=== PATIENT | male | born 1970 ===

== ENCOUNTER 2017-05-03 21:22 | Emergency (ER) | payer SELFPAY ==
[2017-05-03 21:22] VITALS: BMI 25.8
[2017-05-03 21:35] VITALS: BP 123/74; PULSE 64; RESP 18; TEMP 98.7; O2SAT 99
--- NOTE | 2017-05-03 21:59 | ED PDOC ---
HPI: CCC, URI, Sore Throat Time Seen by Provider: 05/03/17 21:43 Chief Complaint (Nursing): Chest Pain Chief Complaint (Provider): Cough, 4 days with tactile fever History Per: Patient History/Exam Limitations: no limitations Have you had recent travel within the past 21 days to any of the following countries: [place], [place], [place] or [place]?: No Onset/Duration Of Symptoms: Days Current Symptoms Are (Timing): Still Present Location Of Pain: None Sick Contacts (Context): None Associated Symptoms: Fever, Chills, Sore Throat, Cough, Myalgias, Other (PT reports central chest pain only when coughing). denies: Sputum, Vomiting, Diarrhea Ear Symptoms: Bilateral: None Severity: Mild Past Medical History Reviewed: Historical Data, Nursing Documentation, Vital Signs Vital Signs: Last Vital Signs Temp 98.7 F 05/03/17 21:33 Pulse 64 05/03/17 21:33 Resp 18 05/03/17 21:33 BP 123/74 05/03/17 21:33 Pulse Ox 99 05/03/17 21:59 - Medical History PMH: No Chronic Diseases - Surgical History Surgical History: Appendectomy - Family History Family History: States: Unknown Family Hx - Living Arrangements Living Arrangements: With Family - Social History Current smoker - smoking cessation education provided: No Alcohol: None Drugs: Denies - Home Medications Home Medications: Ambulatory Orders Medication Instructions Recorded Ibuprofen [Motrin] 600 mg PO Q6 PRN #15 tab 11/15/16 Sulfamethoxazole/Trimethoprim 1 tab PO BID #14 tab 11/15/16 [Bactrim DS 800 mg-160 mg] Azithromycin [Zithromax] 250 mg PO DAILY #6 tab 05/03/17 Promethazine HCl/Codeine 10 ml PO Q8H PRN #150 ml 05/03/17 [Prometh-Codein 6.25-10 mg/5 ml] - Allergies Allergies/Adverse Reactions: Allergies Allergy/AdvReac Type Severity Reaction Status Date / Time No Known Allergies Allergy Verified 05/03/17 21:35 Review of Systems ROS Statement: Except As Marked, All Systems Reviewed And Found Negative Constitutional: Positive for: Fever, Chills, Sweats Cardiovascular: Positive for: Chest Pain (Only when coughing ) Respiratory: Positive for: Cough. Negative for: Shortness of Breath, Pleuritic Pain, Sputum Physical Exam - Reviewed Nursing Documentation Reviewed: Yes Vital Signs Reviewed: Yes - Physical Exam Appears: Positive for: Well, Non-toxic, No Acute Distress Head Exam: Positive for: ATRAUMATIC, NORMAL INSPECTION, NORMOCEPHALIC Skin: Positive for: Normal Color, Warm, DRY Eye Exam: Positive for: Normal appearance ENT: Positive for: Pharyngeal Erythema, Tonsillar Swelling. Negative for: Normal ENT Inspection, Tonsillar Exudate Neck: Positive for: Normal, Painless ROM Cardiovascular/Chest: Positive for: Regular Rate, Rhythm Respiratory: Positive for: CNT, Normal Breath Sounds Gastrointestinal/Abdominal: Positive for: Normal Exam, Bowel Sounds, Soft Back: Positive for: Normal Inspection Extremity: Positive for: Normal ROM Neurologic/Psych: Positive for: Alert, Oriented - ECG O2 Sat by Pulse Oximetry: 99 Disposition - Clinical Impression Clinical Impression: URI (upper respiratory infection) - Patient ED Disposition Is Patient to be Admitted: No Counseled Patient/Family Regarding: Diagnosis, Need For Followup, Rx Given - Disposition Referrals: [facility] [Outside] Disposition: Routine/Home Disposition Time: 21:54 Condition: GOOD Prescriptions: Azithromycin [Zithromax] 250 mg PO DAILY #6 tab Promethazine HCl/Codeine [Prometh-Codein 6.25-10 mg/5 ml] 10 ml PO Q8H PRN #150 ml PRN Reason: Cough Instructions: Upper Respiratory Infection (ED) Print Language: MONTENEGRIN
== END 2017-05-03 22:00 | disposition home or self-care (01) ==
LOC: H.ER 21:22
DX: J06.9 Acute upper respiratory infection, unspecified (principal); R05 Cough

== ENCOUNTER 2017-09-15 15:51 | Emergency (ER) | payer OTHER ==
[2017-09-15 15:52] VITALS: BMI 25.8
[2017-09-15 16:01] VITALS: BP 116/70; PULSE 65; RESP 16; TEMP 98.6; O2SAT 99
--- NOTE | 2017-09-15 16:44 | ED PDOC ---
HPI: Male Pain Time Seen by Provider: 09/15/17 16:30 Chief Complaint (Nursing): Male Genitourinary Chief Complaint (Provider): Dysuria History Per: Patient History/Exam Limitations: no limitations Onset/Duration Of Symptoms: Other (2 weeks) Current Symptoms Are (Timing): Still Present Additional Complaint(s): Patient is a 47 y/o male with no significant past medical history presenting to the emergency department for dysuria ongoing for two weeks with associated bloody ejaculation reported. Also notes having constipation for five days. Denies other complaints. PCP: Dr. Roseann Mccann Past Medical History Reviewed: Historical Data, Nursing Documentation, Vital Signs Vital Signs: Last Vital Signs Temp 98.6 F 09/15/17 15:58 Pulse 65 09/15/17 15:58 Resp 16 09/15/17 15:58 BP 116/70 09/15/17 15:58 Pulse Ox 99 09/15/17 15:58 - Medical History PMH: No Chronic Diseases - Surgical History Surgical History: Appendectomy - Family History Family History: States: Unknown Family Hx - Social History Current smoker - smoking cessation education provided: No Ex-Smoker (has not smoked in the last 12 months): No Alcohol: None Drugs: Denies - Home Medications Home Medications: Ambulatory Orders Medication Instructions Recorded Ibuprofen [Motrin] 600 mg PO Q6 PRN #15 tab 11/15/16 Sulfamethoxazole/Trimethoprim 1 tab PO BID #14 tab 11/15/16 [Bactrim DS 800 mg-160 mg] Azithromycin [Zithromax] 250 mg PO DAILY #6 tab 05/03/17 Promethazine HCl/Codeine 10 ml PO Q8H PRN #150 ml 05/03/17 [Prometh-Codein 6.25-10 mg/5 ml] Ciprofloxacin HCl [Cipro] 500 mg PO BID #28 tablet 09/15/17 Docusate Sodium [Colace] 100 mg PO BID #14 capsule 09/15/17 Phosphate Enema [Fleet Enema 135 135 ml RC ONCE PRN #1 nma 09/15/17 Ml] - Allergies Allergies/Adverse Reactions: Allergies Allergy/AdvReac Type Severity Reaction Status Date / Time No Known Allergies Allergy Verified 05/03/17 21:35 Review of Systems ROS Statement: Except As Marked, All Systems Reviewed And Found Negative Gastrointestinal: Positive for: Constipation Genitourinary Male: Positive for: Dysuria, Other (bloody ejaculation) Physical Exam - Reviewed Nursing Documentation Reviewed: Yes Vital Signs Reviewed: Yes - Physical Exam Appears: Positive for: Well, Non-toxic, No Acute Distress Head Exam: Positive for: ATRAUMATIC, NORMAL INSPECTION, NORMOCEPHALIC Skin: Positive for: Normal Color, Warm, Dry Eye Exam: Positive for: Normal appearance Neck: Positive for: Normal Cardiovascular/Chest: Positive for: Regular Rate, Rhythm Respiratory: Negative for: Accessory Muscle Use, Respiratory Distress Gastrointestinal/Abdominal: Positive for: Normal Exam, Soft. Negative for: Tenderness Male Genital Exam: Positive for: normal genitalia (nontender), other ( tenderness of perineal region on palpation) Back: Positive for: Normal Inspection. Negative for: L CVA Tenderness, R CVA Tenderness, Vertebral Tenderness Extremity: Positive for: Normal ROM Neurologic/Psych: Positive for: Alert, Oriented (x3) - Laboratory Results Result Diagrams: 09/15/17 17:27 09/15/17 17:27 - ECG O2 Sat by Pulse Oximetry: 99 (RA) Pulse Ox Interpretation: Normal - Progress ED Course And Treament: CT ABD/PELVIS IMPRESSION: 1. No acute abdominal or pelvic abnormality. 2. Specifically, no evidence of colonic diverticulosis. Constipation. No evidence of bowel obstruction. 3. Fatty liver. Medical Decision Making Medical Decision Making: Time: 16:26 Initial impression: UTI Initial plan: * ED Urine Dipstick * A/P CT scan with IV contrast * Chlamydia/gonorrhea * Urine Culture * Urinalysis ~ Scribe Attestation: Documented by Kerry Joiner, acting as a scribe for DARNELL Yadav. Provider Scribe Attestation: All medical record entries made by the Scribe were at my direction and personally dictated by me. I have reviewed the chart and agree that the record accurately reflects my personal performance of the history, physical exam, medical decision making, and the department course for this patient. I have also personally directed, reviewed, and agree with the discharge instructions and disposition. Disposition - Clinical Impression Clinical Impression: Constipation, Dysuria - Patient ED Disposition Is Patient to be Admitted: No - Disposition Referrals: Jo Briseno MD [Medical Doctor] - Disposition: Routine/Home Disposition Time: 19:46 Condition: FAIR Prescriptions: Ciprofloxacin HCl [Cipro] 500 mg PO BID #28 tablet Docusate Sodium [Colace] 100 mg PO BID #14 capsule Phosphate Enema [Fleet Enema 135 Ml] 135 ml RC ONCE PRN #1 nma PRN Reason: Constipation Instructions: Constipation (ED), High Fiber Diet (ED), Dysuria (ED) Forms: [facility] (Sudanese) Print Language: YI
[2017-09-15 17:26] LABS: URINE BILIRUBIN NEGATIVE (NEGATIVE); URINE BLOOD SMALL (NEGATIVE); URINE COLOR YELLOW (YELLOW); URINE GLUCOSE (UA) NEG (Normal); URINE KETONE NEGATIVE (NEGATIVE); URINE LEUKOCYTE ESTERASE NEG Leu/uL (Negative); URINE PROTEIN NEGATIVE (NEGATIVE); URINE UROBILINOGEN 0.2-1.0 mg/dL (0.2-1.0); WBC URINE < 1 /hpf (0-5)
[2017-09-15 17:31] LABS: BASO % 0.6 % (0.0-2.0); HEMATOCRIT 36.7 % (35.0-51.0); LYMPH # 1.3 K/uL (1.0-4.3); LYMPH % 29.9 % (20.0-40.0); MEAN CELL VOLUME 93.9 fl (80.0-94.0); MEAN CORPUSCULAR HEMOGLOBIN 31.6 pg (27.0-31.0); MEAN CORPUSCULAR HGB CONC 33.6 g/dL (33.0-37.0); MEAN PLATELET VOLUME 8.4 fl (7.2-11.7); MONO # 0.4 K/uL (0.0-0.8); MONO % 10.6 % (0.0-10.0); NEUT # 2.4 K/uL (1.8-7.0); NEUT % 57.9 % (50.0-75.0); NRBC % 0.1 % (0.0-0.0); RED CELL DISTRIBUTION WIDTH 12.8 % (11.5-14.5); WHITE BLOOD COUNT 4.2 K/uL (4.8-10.8)
[2017-09-15 17:31] LABS: RBC URINE 5 /hpf (0-3)
[2017-09-15 17:42] LABS: ALB/GLOB RATIO 1.4 (1.0-2.1); ALKALINE PHOSPHATASE 63 U/L (38-126); ALT/SGPT 27 U/L (21-72); AST/SGOT 34 U/L (17-59); BILIRUBIN,TOTAL 0.5 mg/dl (0.2-1.3); BLOOD UREA NITROGEN 17 mg/dl (9-20); CALCIUM 9.6 mg/dL (8.4-10.2); CARBON DIOXIDE 28 mmol/L (22-30); CHLORIDE 103 mmol/L (98-107); GFR AFRICAN-AMERICAN > 60; GLUCOSE,RANDOM 93 mg/dL (75-110); LIPASE 102 U/L (23-300); POTASSIUM 4.3 MMOL/L (3.6-5.0); SODIUM 142 mmol/l (132-148); TOTAL PROTEIN 8.2 G/DL (6.3-8.2)
[2017-09-15] MEDS ORDERED: Sodium Chloride 0.9% 50 ML IV ONE (17:47)
[2017-09-15] MEDS ORDERED: Iohexol 300 100 ML IJ ONE (17:47)
[2017-09-15] MEDS ORDERED: Sodium Chloride 0.9% 1,000 ML IV STA (17:57)
--- NOTE | 2017-09-15 18:35 | CT ---
PROCEDURE: CT Abdomen and Pelvis with contrast HISTORY: R/O DIVERTICULITIS COMPARISON: None. TECHNIQUE: CT scan of the abdomen and pelvis was performed after intravenous administration of contrast. Oral contrast was not administered. Coronal and sagittal reformatted images were obtained. Contrast dose: Radiation dose: Total exam DLP = 729.71 mGy-cm. This CT exam was performed using one or more of the following dose reduction techniques: Automated exposure control, adjustment of the mA and/or kV according to patient size, and/or use of iterative reconstruction technique. FINDINGS: LOWER THORAX: There is minimal subsegmental atelectasis in the lung bases. LIVER: The liver is normal in size and there is diffuse fatty infiltration. No gross lesion or ductal dilatation. GALLBLADDER AND BILE DUCTS: There are no calcified gallstones. PANCREAS: The pancreas is normal in size and there is homogeneous enhancement. No gross lesion or ductal dilatation. SPLEEN: The spleen is normal in size and there is homogeneous enhancement without focal lesion. ADRENALS: Both adrenal glands are normal in size without discrete nodule. KIDNEYS AND URETERS: Both kidneys are normal in size and there is homogeneous enhancement without hydronephrosis or mass. VASCULATURE: No aortic aneurysm. BOWEL: The small bowel loops are normal in caliber. There is large amount of stool in the colon. No bowel dilatation or obstruction APPENDIX: No inflammatory changes in the right lower quadrant. PERITONEUM: No free fluid. No free air. LYMPH NODES: No enlarged lymph nodes. BLADDER: Normal in appearance. REPRODUCTIVE: The prostate gland is normal in size. BONES: No acute fracture. Within normal limits for the patient's age. OTHER FINDINGS: None. IMPRESSION: 1. No acute abdominal or pelvic abnormality. 2. Specifically, no evidence of colonic diverticulosis. Constipation. No evidence of bowel obstruction. 3. Fatty liver.
== END 2017-09-15 20:00 | disposition home or self-care (01) ==
LOC: H.ER 15:51
DX: N39.0 Urinary tract infection, site not specified (principal); K59.00 Constipation, unspecified
CPT/HCPCS: 74177; 80053; 81003; 83690; 85025; 87086; 87491; 87591; 99282; Q9967

== ENCOUNTER 2018-01-02 13:04 | Emergency (ER) | payer SELFPAY ==
[2018-01-02 13:05] VITALS: BMI 25.8
[2018-01-02 13:22] VITALS: PULSE 68; RESP 18; TEMP 98
--- NOTE | 2018-01-02 14:17 | ED PDOC ---
HPI: General Adult Time Seen by Provider: 01/02/18 13:54 Chief Complaint (Nursing): GI Problem Chief Complaint (Provider): Blood in Stool History Per: Patient History/Exam Limitations: no limitations Onset/Duration Of Symptoms: Persistent Additional Complaint(s): Carlos Simmons is a 47 year old male with a history of anemia that presents to the ED with a chief complaint of blood in stool as well as epigastric pain that radiates to his back. Patient reports that he has had small amount of blood present in his stool for months, but that it was so small he did not feel the need see a doctor. However, he states that it greatly worsened today, as his stool was strongly colored red, prompting his ED visit. Patient denies any dizziness, vomiting, or difficulty urinating. Past Medical History Reviewed: Historical Data, Nursing Documentation, Vital Signs Vital Signs: Last Vital Signs Temp 98 F 01/02/18 13:19 Pulse 68 01/02/18 13:19 Resp 18 01/02/18 13:19 BP 104/65 01/02/18 13:19 Pulse Ox 99 01/02/18 13:19 - Medical History PMH: Anemia - Surgical History Surgical History: Appendectomy - Family History Family History: States: Unknown Family Hx - Home Medications Home Medications: Ambulatory Orders Medication Instructions Recorded Ibuprofen [Motrin] 600 mg PO Q6 PRN #15 tab 11/15/16 Sulfamethoxazole/Trimethoprim 1 tab PO BID #14 tab 11/15/16 [Bactrim DS 800 mg-160 mg] Azithromycin [Zithromax] 250 mg PO DAILY #6 tab 05/03/17 Promethazine HCl/Codeine 10 ml PO Q8H PRN #150 ml 05/03/17 [Prometh-Codein 6.25-10 mg/5 ml] Ciprofloxacin HCl [Cipro] 500 mg PO BID #28 tablet 09/15/17 Docusate Sodium [Colace] 100 mg PO BID #14 capsule 09/15/17 Phosphate Enema [Fleet Enema 135 135 ml RC ONCE PRN #1 nma 09/15/17 Ml] - Allergies Allergies/Adverse Reactions: Allergies Allergy/AdvReac Type Severity Reaction Status Date / Time No Known Allergies Allergy Verified 05/03/17 21:35 Review of Systems Gastrointestinal: Positive for: Abdominal Pain (epigastric), Hematochezia. Negative for: Vomiting Genitourinary Male: Negative for: Other (denies difficulty urinating) Musculoskeletal: Positive for: Back Pain Neurological: Negative for: Dizziness Physical Exam - Reviewed Nursing Documentation Reviewed: Yes Vital Signs Reviewed: Yes - Physical Exam Appears: Positive for: Non-toxic, No Acute Distress Head Exam: Positive for: ATRAUMATIC, NORMOCEPHALIC Skin: Positive for: Normal Color, Warm Eye Exam: Positive for: Normal appearance, EOMI, PERRL Cardiovascular/Chest: Positive for: Regular Rate, Rhythm. Negative for: Murmur Respiratory: Positive for: Normal Breath Sounds. Negative for: Wheezing Gastrointestinal/Abdominal: Positive for: Tenderness (epigastric and suprapubic TTP). Negative for: Normal Exam Back: Positive for: Normal Inspection. Negative for: L CVA Tenderness, R CVA Tenderness Rectal: Positive for: Other (Chaperoned by CABRERA Torrez, thin mucus bloody stool , sent for culture to lab as protocol. ). Negative for: Normal Exam Extremity: Positive for: Normal ROM. Negative for: Deformity, Swelling Neurologic/Psych: Positive for: Alert, Oriented. Negative for: Motor/Sensory Deficits - ECG O2 Sat by Pulse Oximetry: 99 (RA) Pulse Ox Interpretation: Normal Medical Decision Making Medical Decision Making: Impression: Blood in Stool Plan: * X-Ray Obstructive Series * CMP * CBC * Type and Screen * Pepcid 20 mg IV * Zofran 4 mg IV * Reevaluation Rectal exam chaperoned by CABRERA Torrez, stool sent for culture to lab as protocol. Scribe Attestation: Documented by Li Laguna, acting as a scribe for Lorena Byrd MD. Provider Scribe Attestation: All medical record entries made by the Scribe were at my direction and personally dictated by me. I have reviewed the chart and agree that the record accurately reflects my personal performance of the history, physical exam, medical decision making, and the department course for this patient. I have also personally directed, reviewed, and agree with the discharge instructions and disposition. Disposition - Disposition
[2018-01-02 14:36] LABS: BASO % 0.5 % (0.0-2.0); EOS % 0.8 % (0.0-4.0); HEMOGLOBIN 13.4 g/dL (12.0-18.0); LYMPH # 1.2 K/uL (1.0-4.3); LYMPH % 25.4 % (20.0-40.0); MEAN CELL VOLUME 92.9 fl (80.0-94.0); MEAN CORPUSCULAR HEMOGLOBIN 31.5 pg (27.0-31.0); MEAN CORPUSCULAR HGB CONC 33.9 g/dL (33.0-37.0); MEAN PLATELET VOLUME 8.1 fl (7.2-11.7); MONO # 0.6 K/uL (0.0-0.8); MONO % 11.5 % (0.0-10.0); NEUT # 2.9 K/uL (1.8-7.0); NEUT % 61.8 % (50.0-75.0); NRBC % 0.1 % (0.0-0.0); RBC 4.25 Mil/uL (4.40-5.90); RED CELL DISTRIBUTION WIDTH 12.6 % (11.5-14.5); WHITE BLOOD COUNT 4.8 K/uL (4.8-10.8)
[2018-01-02 14:48] LABS: ALB/GLOB RATIO 1.3 (1.0-2.1); ALBUMIN 4.3 g/dL (3.5-5.0); ALT/SGPT 51 U/L (21-72); AST/SGOT 31 U/L (17-59); BLOOD UREA NITROGEN 22 mg/dl (9-20); CALCIUM 9.4 mg/dL (8.4-10.2); GFR AFRICAN-AMERICAN > 60; GFR NON-AFRICAN AMERICAN > 60
--- NOTE | 2018-01-02 14:55 | RAD ---
PROCEDURE: Radiographs of the chest and abdomen (obstructive series) HISTORY: epigastric pain to back, blood per rectum COMPARISON: No prior. TECHNIQUE: AP radiograph of the chest, with upright and supine radiographs of the abdomen. FINDINGS: CHEST: Lungs: Clear. Cardiovascular: Normal size heart. No pulmonary vascular congestion. Pleura: No pleural fluid. No pneumothorax. Other findings: None. ABDOMEN AND PELVIS: Bowel: Unremarkable bowel gas pattern. No evidence of mechanical obstruction. Free air: None. Bones: Unremarkable. Other findings: None. IMPRESSION: Unremarkable radiographs of chest and abdomen. No evidence of mechanical bowel obstruction.
--- NOTE | 2018-01-02 15:44 | ED PDOC ---
- Laboratory Results Result Diagrams: 01/02/18 14:30 01/02/18 14:30 - ECG O2 Sat by Pulse Oximetry: 99 (RA) Pulse Ox Interpretation: Normal Medical Decision Making Medical Decision Making: Time: 15:00 --Patient signed out to me by Dr. Byrd pending labs and x-ray. X-Ray Abdomen Obstructive Series FINDINGS: CHEST: Lungs: Clear. Cardiovascular: Normal size heart. No pulmonary vascular congestion. Pleura: No pleural fluid. No pneumothorax. Other findings: None. ABDOMEN AND PELVIS: Bowel: Unremarkable bowel gas pattern. No evidence of mechanical obstruction. Free air: None. Bones: Unremarkable. Other findings: None. IMPRESSION: Unremarkable radiographs of chest and abdomen. No evidence of mechanical bowel obstruction. CT Abdomen/Pelvis with IV Contrast only FINDINGS: Limitations: Motion artifact - mild. Lower thorax: No acute findings. ABDOMEN: Liver: Mild fatty infiltration. Gallbladder and bile ducts: No calcified stones. No ductal dilation. Pancreas: No ductal dilation. No mass. Spleen: No splenomegaly. Adrenals: No mass. Kidneys and ureters: No mass. No hydronephrosis. Stomach and bowel: No definite mural thickening. No obstruction. Appendix: No findings to suggest acute appendicitis. PELVIS: Bladder: Unremarkable. Reproductive: Unremarkable as visualized. ABDOMEN and PELVIS: Intraperitoneal space: No significant fluid collection. No free air. Bones/joints: No acute fracture. Soft tissues: Unremarkable. Vasculature: Unremarkable. No aneurysm. Lymph nodes: No pathologically enlarged lymph nodes. IMPRESSION: 1. No definite acute intraabdominal abnormality. 2. Incidental/non-acute findings are described above. Scribe Attestation: Documented by Brayan Briones and Li Laguna, acting as scribes for Yolanda Vital MD. Provider Scribe Attestation: All medical record entries made by the Scribe were at my direction and personally dictated by me. I have reviewed the chart and agree that the record accurately reflects my personal performance of the history, physical exam, medical decision making, and the department course for this patient. I have also personally directed, reviewed, and agree with the discharge instructions and disposition. Disposition - Clinical Impression Clinical Impression: Rectal bleeding - POA Present On Arrival: None - Disposition Referrals: [facility] [Outside] Disposition: Routine/Home Disposition Time: 20:34 Condition: STABLE Prescriptions: Pantoprazole Sodium [Protonix] 40 mg PO DAILY #14 ect Instructions: Rectal Bleeding (ED) Forms: [facility] ([place])
[2018-01-02 17:48] VITALS: BP 106/63; O2SAT 99
--- NOTE | 2018-01-02 20:24 | CT ---
EXAM: CT Abdomen and Pelvis With Intravenous Contrast CLINICAL HISTORY: 47 years old, male; Pain; Abdominal pain; Other: Lower abd bilateral; Additional info: Abd pain, hematochezia TECHNIQUE: Axial computed tomography images of the abdomen and pelvis with intravenous contrast. All CT scans at this facility use one or more dose reduction techniques, viz.: automated exposure control; ma/kV adjustment per patient size (including targeted exams where dose is matched to indication; i.e. head); or iterative reconstruction technique. Coronal and sagittal reformatted images were created and reviewed. CONTRAST: 90 mL of [id number] administered intravenously. COMPARISON: CT - ABD PELVIS IV CONTRAST ONLY 2017-09-15 17:53 FINDINGS: Limitations: Motion artifact - mild. Lower thorax: No acute findings. ABDOMEN: Liver: Mild fatty infiltration. Gallbladder and bile ducts: No calcified stones. No ductal dilation. Pancreas: No ductal dilation. No mass. Spleen: No splenomegaly. Adrenals: No mass. Kidneys and ureters: No mass. No hydronephrosis. Stomach and bowel: No definite mural thickening. No obstruction. Appendix: No findings to suggest acute appendicitis. PELVIS: Bladder: Unremarkable. Reproductive: Unremarkable as visualized. ABDOMEN and PELVIS: Intraperitoneal space: No significant fluid collection. No free air. Bones/joints: No acute fracture. Soft tissues: Unremarkable. Vasculature: Unremarkable. No aneurysm. Lymph nodes: No pathologically enlarged lymph nodes. IMPRESSION: 1. No definite acute intraabdominal abnormality. 2. Incidental/non-acute findings are described above.
== END 2018-01-02 20:55 | disposition home or self-care (01) ==
LOC: H.ER 13:04
DX: K62.5 Hemorrhage of anus and rectum (principal)
CPT/HCPCS: 74022; 74177; 80053; 85025; 86850; 86900; 96374; 96375; 99284; G0328; J2405

== ENCOUNTER 2018-01-26 09:12 | Emergency (ER) | payer SELFPAY ==
[2018-01-26 09:12] VITALS: BMI 25.8
[2018-01-26 09:35] VITALS: RESP 16; O2SAT 100
[2018-01-26] MEDS ORDERED: Iohexol 240 (50 ml) PO ONE (09:47)
--- NOTE | 2018-01-26 10:06 | ED PDOC ---
HPI: General Adult Time Seen by Provider: 01/26/18 09:25 Chief Complaint (Nursing): GI Problem Chief Complaint (Provider): Rectal Bleeding History Per: Patient History/Exam Limitations: no limitations Onset/Duration Of Symptoms: Days (x5) Current Symptoms Are (Timing): Still Present Additional Complaint(s): Carlos Simmons is a 47 year old male with a history of gastritis that presents to the ED with a chief complaint of rectal bleeding that he has been experiencing for the past 5 days. Patient reports that every time he has a bowel movement there is bright red blood present along with his stool. He additionally complains of associated constant epigastric pain that has a burning character, which has also been going on for five days, as well as chills and intermittent feelings of dizziness. Patient denies any black stools, blood clots, vomiting, chest pain, syncope, use of anticoagulants or NSAIDs, or any history of GI bleeds. Of Note: Patient uses Protonix daily for gastritis. PMD: Patient goes to clinic. Past Medical History Reviewed: Historical Data, Nursing Documentation, Vital Signs Vital Signs: Last Vital Signs Temp 98.0 F 01/26/18 17:00 Pulse 85 01/26/18 17:00 Resp 16 01/26/18 17:00 BP 126/75 01/26/18 17:00 Pulse Ox 100 01/26/18 18:20 - Medical History PMH: Anemia, Gastritis - Surgical History Surgical History: Appendectomy - Family History Family History: States: Unknown Family Hx - Home Medications Home Medications: Ambulatory Orders Medication Instructions Recorded Pantoprazole Sodium [Protonix] 20 mg PO DAILY #30 01/26/18 Pantoprazole Sodium [Protonix] 40 mg PO DAILY #14 ect 01/26/18 - Allergies Allergies/Adverse Reactions: Allergies Allergy/AdvReac Type Severity Reaction Status Date / Time No Known Allergies Allergy Verified 05/03/17 21:35 Review of Systems ROS Statement: Except As Marked, All Systems Reviewed And Found Negative Constitutional: Positive for: Chills Cardiovascular: Negative for: Chest Pain Gastrointestinal: Positive for: Abdominal Pain (constant, burning epigastric pain), Hematochezia. Negative for: Vomiting, Melena, Other (denies blood clots in stool) Neurological: Positive for: Dizziness (intermittent). Negative for: Other ( denies syncope) Physical Exam - Reviewed Nursing Documentation Reviewed: Yes Vital Signs Reviewed: Yes - Physical Exam Appears: Positive for: Non-toxic, No Acute Distress Head Exam: Positive for: ATRAUMATIC, NORMOCEPHALIC Skin: Positive for: Normal Color, Warm Eye Exam: Positive for: EOMI, Normal appearance, PERRL Cardiovascular/Chest: Positive for: Regular Rate, Rhythm. Negative for: Murmur Respiratory: Positive for: Normal Breath Sounds. Negative for: Wheezing Gastrointestinal/Abdominal: Positive for: Tenderness (tenderness to palpation in epigastric area and in left lower quadrant). Negative for: Normal Exam Back: Positive for: Normal Inspection. Negative for: L CVA Tenderness, R CVA Tenderness Rectal: Positive for: Normal Exam, Other (No blood, and no guac because there was no stool. Performed with geospatial applications developer Nurse Ivone). Negative for: Black Stool , Hemorrhoids, Tenderness Extremity: Positive for: Normal ROM. Negative for: Deformity, Swelling Neurologic/Psych: Positive for: Alert. Negative for: Motor/Sensory Deficits - Laboratory Results Result Diagrams: 01/26/18 10:05 01/26/18 10:05 - ECG O2 Sat by Pulse Oximetry: 100 (RA) Pulse Ox Interpretation: Normal Medical Decision Making Medical Decision Making: Impression: Abdominal Pain and Rectal Bleeding, ddx include but not limited to Upper vs. Lower GI Bleed vs. Diverticulitis vs. Peptic Ulcer Disease Plan: * CT Abdomen/Pelvis with PO or IV Contrast * BMP * CBC * LFT * PTT * PT * Type and Screen * Iohexol 50 mg PO * Protonix Inj 40 mg iV * Urinalysis * Reevaluation Time: 14:29 CT ABDOMEN AND PELVIS FINDINGS: LOWER THORAX: Unremarkable. LIVER: Unremarkable. No gross lesion or ductal dilation. GALLBLADDER AND BILE DUCTS: Unremarkable. PANCREAS: Unremarkable. No gross lesion or ductal dilation. SPLEEN: Unremarkable. ADRENALS: Unremarkable. No mass. KIDNEYS AND URETERS: Unremarkable. No hydronephrosis. No solid mass. VASCULATURE: Unremarkable. No aortic aneurysm. BOWEL: Unremarkable. No obstruction. No gross mural thickening. APPENDIX: Unremarkable. No secondary findings. PERITONEUM: Unremarkable. No free fluid. No pete air. LYMPH NODES: Unremarkable. No enlarged lymph nodes. BLADDER: Unremarkable. REPRODUTIVE: Unremarkable prostate. BONES: No acute fracture. OTHER FINDINGS: None. IMPRESSION: No acute abnormality. Time: 15:[address] Sauceda who agrees that patient is stable for discharge. Discussed with FP resident who arranged follow up. Patient has no clinical evidence of apparent GI bleed and is at low risk for complications. Scribe Attestation: Documented by Li Laguna and Nura Oviedo, acting as scribes for Jesse Epps MD. Provider Scribe Attestation: All medical record entries made by the Scribe were at my direction and personally dictated by me. I have reviewed the chart and agree that the record accurately reflects my personal performance of the history, physical exam, medical decision making, and the department course for this patient. I have also personally directed, reviewed, and agree with the discharge instructions and disposition. Disposition - Clinical Impression Clinical Impression: Rectal bleeding, Gastritis - Patient ED Disposition Is Patient to be Admitted: No Doctor Will See Patient In The: Office Counseled Patient/Family Regarding: Studies Performed, Diagnosis, Need For Followup - Disposition Referrals: [facility] [Outside] Hussein Sauceda MD, PhD [Staff Provider] - Disposition: Routine/Home Disposition Time: 18:18 Condition: GOOD Additional Instructions: Take your medications as instructed. Follow up with your PCP in 2-3 days. You have an appointment on January 31 at 11 am. Prescriptions: Pantoprazole Sodium [Protonix] 20 mg PO DAILY #30 tablet. Pantoprazole Sodium [Protonix] 40 mg PO DAILY #14 ect Instructions: Bloody Stools Forms: [employer] (Nepalese) Print Language: GUATEMALAN
[2018-01-26] MEDS ORDERED: Iohexol 240 (50 ml) ONE (10:26)
[2018-01-26 10:33] LABS: BASO % 0.6 % (0.0-2.0); EOS % 0.7 % (0.0-4.0); HEMOGLOBIN 12.7 g/dL (12.0-18.0); LYMPH # 1.3 K/uL (1.0-4.3); LYMPH % 28.8 % (20.0-40.0); MEAN CELL VOLUME 92.6 fl (80.0-94.0); MEAN CORPUSCULAR HGB CONC 34.5 g/dL (33.0-37.0); MEAN PLATELET VOLUME 8.6 fl (7.2-11.7); MONO # 0.4 K/uL (0.0-0.8); MONO % 8.4 % (0.0-10.0); NEUT # 2.7 K/uL (1.8-7.0); NEUT % 61.5 % (50.0-75.0); NRBC % 0.2 % (0.0-0.0); RBC 3.98 Mil/uL (4.40-5.90); RED CELL DISTRIBUTION WIDTH 12.4 % (11.5-14.5); WHITE BLOOD COUNT 4.4 K/uL (4.8-10.8)
[2018-01-26 10:35] LABS: INR 1.2 (0.9-1.2)
[2018-01-26 10:36] LABS: PARTIAL THROMBOPLASTIN TIME 35.5 Seconds (25.6-37.1)
[2018-01-26 11:02] LABS: ALB/GLOB RATIO 1.2 (1.0-2.1); ALBUMIN 4.2 g/dL (3.5-5.0); ALT/SGPT 56 U/L (21-72); AST/SGOT 37 U/L (17-59); BILIRUBIN,DIRECT 0.3 mg/ml (0.0-0.4); BLOOD UREA NITROGEN 16 mg/dl (9-20); CALCIUM 9.3 mg/dL (8.4-10.2); GFR AFRICAN-AMERICAN > 60; GFR NON-AFRICAN AMERICAN > 60
[2018-01-26] MEDS ORDERED: Iohexol 300 100 ML IJ ONE (13:50)
[2018-01-26] MEDS ORDERED: Sodium Chloride 0.9% 100 ML ONE (13:50)
--- NOTE | 2018-01-26 14:31 | CT ---
PROCEDURE: CT Abdomen and Pelvis with contrast HISTORY: abdominal pain rectal bleeding COMPARISON: None. TECHNIQUE: Contrast dose: 95 mL Omnipaque 300 Radiation dose: Total exam DLP = 630.51 mGy-cm. This CT exam was performed using one or more of the following dose reduction techniques: Automated exposure control, adjustment of the mA and/or kV according to patient size, and/or use of iterative reconstruction technique. FINDINGS: LOWER THORAX: Unremarkable. LIVER: Unremarkable. No gross lesion or ductal dilatation. GALLBLADDER AND BILE DUCTS: Unremarkable. PANCREAS: Unremarkable. No gross lesion or ductal dilatation. SPLEEN: Unremarkable. ADRENALS: Unremarkable. No mass. KIDNEYS AND URETERS: Unremarkable. No hydronephrosis. No solid mass. VASCULATURE: Unremarkable. No aortic aneurysm. BOWEL: Unremarkable. No obstruction. No gross mural thickening. APPENDIX: Not identified. No secondary findings. PERITONEUM: Unremarkable. No free fluid. No free air. LYMPH NODES: Unremarkable. No enlarged lymph nodes. BLADDER: Unremarkable. REPRODUCTIVE: Unremarkable prostate BONES: No acute fracture. OTHER FINDINGS: None. IMPRESSION: No acute abnormality.
[2018-01-26 18:53] VITALS: BP 126/75; PULSE 85; TEMP 98
== END 2018-01-26 18:36 | disposition home or self-care (01) ==
LOC: H.ER 09:12
DX: K29.70 Gastritis, unspecified, without bleeding (principal)
CPT/HCPCS: 74177; 80048; 80076; 85025; 85610; 85730; 86850; 86900; 96374; 99285; C9113; Q9966; Q9967

== ENCOUNTER 2018-02-12 11:42 | Emergency (ER) | payer SELFPAY ==
[2018-02-12 11:59] VITALS: BP 109/68; PULSE 68; RESP 16; TEMP 98.3; O2SAT 99
[2018-02-12 12:00] VITALS: BMI 26.5
[2018-02-12] MEDS ORDERED: Atrop/Hyos/Scop/PhenoB Elixir PO STA (13:13)
[2018-02-12] MEDS ORDERED: Alum-Mag Hydrox-Simethicone Susp (30 mL) PO STA (13:13)
[2018-02-12] MEDS ORDERED: Sodium Chloride 0.9% 1,000 ML IV SCH (13:15)
--- NOTE | 2018-02-12 13:43 | ED PDOC ---
HPI: Abdomen Time Seen by Provider: 02/12/18 12:20 Chief Complaint (Nursing): Abdominal Pain Chief Complaint (Provider): Abdominal pain History Per: Patient History/Exam Limitations: no limitations Onset/Duration Of Symptoms: Persistent Outside of [place] travel?: No Current Symptoms Are (Timing): Still Present Location Of Pain/Discomfort: Diffuse Additional Complaint(s): Patient complains of abdominal pain for the past month, associated with nausea, difficulty tolerating PO intake as well as bloody stools. Patient states he has bright red blood per rectum, occurring several times per day. He states he has been to this facility for similar symptoms and was evaluated 2x recently. Patient was diagnosed with gastritis and rectal bleed. He has an appointment with a GI in February but presents today due to persistent symptoms. He states he has Otherwise: (-) vomiting, (-) diarrhea, (-) fever, (-) melena (-) chest pain (-) shortness of breath (-) back pain (-) urinary symptoms. Past Medical History Reviewed: Historical Data, Nursing Documentation, Vital Signs Vital Signs: Last Vital Signs Temp 98.3 F 02/12/18 11:58 Pulse 68 02/12/18 11:58 Resp 16 02/12/18 11:58 BP 109/68 02/12/18 11:58 Pulse Ox 99 02/12/18 13:57 - Medical History PMH: Anemia, Gastritis - Surgical History Surgical History: Appendectomy - Family History Family History: States: Unknown Family Hx - Home Medications Home Medications: Ambulatory Orders Medication Instructions Recorded Pantoprazole Sodium [Protonix] 20 mg PO DAILY #30 tablet. 01/26/18 Pantoprazole Sodium [Protonix] 40 mg PO DAILY #14 ect 01/26/18 Atropine/Hyoscyamine [] 1 tab PO TID PRN #20 tab 02/12/18 - Allergies Allergies/Adverse Reactions: Allergies Allergy/AdvReac Type Severity Reaction Status Date / Time No Known Allergies Allergy Verified 05/03/17 21:35 Review of Systems ROS Statement: Except As Marked, All Systems Reviewed And Found Negative Constitutional: Negative for: Fever, Chills Cardiovascular: Negative for: Chest Pain Respiratory: Negative for: Shortness of Breath Gastrointestinal: Positive for: Abdominal Pain, Hematochezia. Negative for: Vomiting, Diarrhea Physical Exam - Physical Exam Comments: GENERAL APPEARANCE: Patient is awake, alert, oriented x 3, in no acute distress SKIN: Warm, dry; (-) cyanosis. EYES: (-) conjunctival pallor, (-) scleral icterus. ENMT: Mucous membranes moist. NECK: (-) tenderness, (-) stiffness, (-) lymphadenopathy. CHEST AND RESPIRATORY: (-) rales, (-) rhonchi, (-) wheezes; breath sounds equal bilaterally. HEART AND CARDIOVASCULAR: (-) irregularity; (-) murmur, (-) gallop. ABDOMEN AND GI: (-) distention. Bowel sounds active; (+) mild tenderness diffusely, more on left upper quadrant, (-) guarding, (-) rebound, (-) palpable masses, (-) CVA tenderness. RECTAL: Patient is refusing rectal exam, patient notified of the reasoning why a rectal exam is necessary, however he still refuses. EXTREMITIES: (-) deformity, (-) edema, (+) distal pulses. NEURO AND PSYCH: Mental status as above; (-) focal findings. - Laboratory Results Result Diagrams: 02/12/18 13:55 02/12/18 13:55 - ECG O2 Sat by Pulse Oximetry: 99 (RA) Pulse Ox Interpretation: Normal Medical Decision Making Medical Decision Making: Previous records reviewed by provider, patient was evaluated in this facility on 01/02/18 with complaints of abdominal pain with bloody stools. Patient's hemoglobin was within normal limits, and normal abdominal XR. Patient was evaluated again on 01/26/18 and his hemoglobin was unchanged, stable and within normal levels. CT Abdomen and pelvis was with no acute abnormalities. Impression: abdominal pain, likely dyspepsia, rectal bleed Plan: -- Labs -- Maalox 30 ml PO -- Zofran 4mg IVP -- Protonix 40mg IVP -- Lidocaine 15ml PO -- 5ml PO -- IV Fluids On re-evaluation, patient reports improvement of symptoms, patient laying comfortably in bed, is smiling, denies any abdominal pain, nausea or any episodes of rectal bleeding while in the ER. On exam, patient remains AAOx3, in no acute distress. Lungs clear to auscultation, cardiac RRR, abdomen soft, non- tender. Lab results reviewed and are wnl, patient has a normal wbc and hgb is stable at 13. Diagnostic results d/w the patient in great detail. Diagnosis of dyspepsia d/w the patient. Based on history, exam and diagnostic results, plan will be for outpatient follow up, patient encouraged to f/u with his GI appointment that is scheduled. Patient instructed to follow-up with GI and/or the clinic in 1-2 days without fail. Advised to take medication as prescribed. Return to the emergency room at any time for any new or worsening symptoms. Patient states he fully agrees with and understands discharge instructions. States that he agrees with the plan and disposition. Verbalized and repeated discharge instructions and plan. I have given the patient opportunity to ask any additional questions. Scribe Attestation: Documented by Jenn Guerrero acting as a scribe for DARNELL Dye. Provider Attestation: All medical record entries made by the Scribe were at my direction and personally dictated by me. I have reviewed the chart and agree that the record accurately reflects my personal performance of the history, physical exam, medical decision making, and the department course for this patient. I have also personally directed, reviewed, and agree with the discharge instructions and disposition. Disposition - Clinical Impression Clinical Impression: Abdominal pain, Dyspepsia - Patient ED Disposition Is Patient to be Admitted: No Counseled Patient/Family Regarding: Studies Performed, Diagnosis, Need For Followup, Rx Given - Disposition Referrals: [facility] [Outside] Provider TBD, [Primary Care Provider] - Disposition: Routine/Home Disposition Time: 16:00 Condition: IMPROVED Additional Instructions: Thank you for letting us take care of you today. You were treated for abdominal pain, dyspepsia. The emergency medical care you received today was directed at your acute symptoms. If you were prescribed any medication, please fill it and take as directed. It may take several days for your symptoms to resolve. Return to the Emergency Department if your symptoms worsen, do not improve, or if you have any other problems. Please contact your GI doctor in 2 days for re-evaluation and follow up / or call one of the physicians/clinics you have been referred to that are listed on the Patient Visit Information form that is included in your discharge packet. Bring any paperwork you were given at discharge with you along with any medications you are taking to your follow up visit. Our treatment cannot replace ongoing medical care by a primary care provider (PCP) outside of the emergency department. Thank you for allowing the [facility] team to be part of your care today. Prescriptions: Atropine/Hyoscyamine [] 1 tab PO TID PRN #20 tab PRN Reason: Dyspepsia Instructions: Dyspepsia Forms: [employer] (Greek), [facility] ED School/Work Excuse Print Language: OMANI
[2018-02-12] MEDS ORDERED: Alum-Mag Hydrox-Simethicone Susp (30 mL) ONE (13:56)
[2018-02-12 14:13] LABS: BASO % 0.4 % (0.0-2.0); EOS # 0.1 K/uL (0.0-0.7); EOS % 1.3 % (0.0-4.0); HEMOGLOBIN 13.3 g/dL (12.0-18.0); LYMPH # 1.2 K/uL (1.0-4.3); LYMPH % 28.5 % (20.0-40.0); MEAN CELL VOLUME 92.7 fl (80.0-94.0); MEAN CORPUSCULAR HEMOGLOBIN 32.1 pg (27.0-31.0); MEAN CORPUSCULAR HGB CONC 34.7 g/dL (33.0-37.0); MEAN PLATELET VOLUME 8.6 fl (7.2-11.7); MONO # 0.4 K/uL (0.0-0.8); MONO % 9.7 % (0.0-10.0); NEUT # 2.6 K/uL (1.8-7.0); NEUT % 60.1 % (50.0-75.0); NRBC % 0.1 % (0.0-0.0); RBC 4.12 Mil/uL (4.40-5.90); RED CELL DISTRIBUTION WIDTH 12.8 % (11.5-14.5); WHITE BLOOD COUNT 4.3 K/uL (4.8-10.8)
[2018-02-12 14:39] LABS: BLOOD UREA NITROGEN 18 mg/dl (9-20); GFR AFRICAN-AMERICAN > 60; GFR NON-AFRICAN AMERICAN > 60
[2018-02-12 14:40] LABS: ALB/GLOB RATIO 1.3 (1.0-2.1); ALBUMIN 4.5 g/dL (3.5-5.0); ALT/SGPT 35 U/L (21-72); AST/SGOT 26 U/L (17-59); CALCIUM 9.7 mg/dL (8.4-10.2); LIPASE 121 U/L (23-300)
[2018-02-12 16:35] LABS: URINE BILIRUBIN NEGATIVE (NEGATIVE); URINE BLOOD NEGATIVE (NEGATIVE); URINE CLARITY CLEAR (Clear); URINE COLOR STRAW (YELLOW); URINE GLUCOSE (UA) NEG (Normal); URINE LEUKOCYTE ESTERASE NEG Leu/uL (Negative); URINE PROTEIN NEGATIVE (NEGATIVE); URINE UROBILINOGEN 0.2-1.0 mg/dL (0.2-1.0)
== END 2018-02-12 16:59 | disposition home or self-care (01) ==
LOC: H.ER 11:42 → SUPCPDRO 11:42 → H.ER 16:59
DX: R10.13 Epigastric pain (principal)
CPT/HCPCS: 80053; 81003; 83690; 85025; 96361; 96374; 99283; C9113; J7040

== ENCOUNTER 2018-03-31 09:45 | Day surgery (SDC) | payer SELFPAY ==
[2018-03-31 11:13] VITALS: BMI 27.0
[2018-03-31] MEDS ORDERED: Lactated Ringer's 500 ML IV ONE (11:15)
[2018-03-31 11:23] VITALS: O2SAT 100
[2018-03-31 13:28] VITALS: TEMP 98
[2018-03-31 13:56] VITALS: BP 100/60; PULSE 68; RESP 20
== END 2018-03-31 14:18 | disposition home or self-care (01) ==
LOC: H.ENDO 09:45 → EDSTATUS 10:15 → H.ENDO 14:18
PROVIDERS: ATTEND Internal Medicine Gastroenterology
DX: K21.9 Gastro-esophageal reflux disease without esophagitis (principal); D50.9 Iron deficiency anemia, unspecified; K64.2 Third degree hemorrhoids
CPT/HCPCS: 45378; 88305; J7120